=== PATIENT | male | born 1960 ===

== ENCOUNTER 2018-03-08 04:49 | Emergency (ER) | payer OTHER ==
--- NOTE | 2018-03-08 04:56 | Emergency Department Record ---
History of Present Illness - General Chief Complaint: Chest Pain Stated Complaint: CHEST PAIN Source: Patient Mode of Arrival: Ambulatory Limitations: No limitations - History of Present Illness Initial Comments: 57 yo male presents to ED for evaluation of chest pain symptoms to the mid- chest described as "grabbing" to the mid chest. Patient reports that his symptoms began approximately 6 hours ago, denies previous history of similar symptoms. Patient denies fevers, chills, cough, or difficulty in breathing. patient denies pain with deep inspiration. patient does report a history of HTN and smoking. MD Complaint: Chest pain Onset/Timin -: Hour(s) Pain Location: Substernal Pain Radiation: None Severity: Moderate Quality: Tightness Consistency: Constant Improves With: Nothing Worsens With: Nothing - Related Data Home Medications Medication Instructions Recorded Confirmed Last Taken Bp Med 1 ml PO BID 03/08/18 03/08/18 Unknown Allergies Allergy/AdvReac Type Severity Reaction Status Date / Time No Known Drug Allergies Allergy Verified 03/08/18 04:52 Review of Systems Constitutional: Denies: Chills, Fever, Malaise, Night sweats Eyes: Denies: Eye discharge, Eye pain ENT: Denies: Congestion, Ear pain, Epistaxis Respiratory: Denies: Cough, Dyspnea Cardiovascular: Reports: Chest pain. Denies: Dyspnea on exertion Endocrine: Denies: Fatigue, Heat or cold intolerance Gastrointestinal: Denies: Abdominal pain, Nausea, Vomiting Genitourinary: Denies: Incontinence, Retention Musculoskeletal: Denies: Arthralgia, Back pain, Gout, Joint swelling Skin: Denies: Bruising, Change in color Neurological: Denies: Abnormal gait, Confusion, Headache, Seizure Psychiatric: Denies: Anxiety Hematological/Lymphatic: Denies: Anemia, Blood Clots Physical Exam - General General Appearance: Alert, Oriented x3, Cooperative, Moderate distress Limitations: No limitations - Head Head exam: Atraumatic, Normocephalic, Normal inspection Head exam detail: negative: Abrasion, Contusion, London's sign, General tenderness, Hematoma, Laceration - Eye Eye exam: Normal appearance. negative: Conjunctival injection, Periorbital swelling, Periorbital tenderness, Scleral icterus - ENT Ear exam: negative: Auricular hematoma, Auricular trauma Nasal Exam: negative: Active bleeding, Discharge, Dried blood, Foreign body Mouth exam: negative: Drooling, Laceration, Muffled voice, Tongue elevation - Neck Neck exam: Normal inspection. negative: Meningismus, Tenderness - Respiratory Respiratory exam: Normal lung sounds bilaterally, Chest wall tenderness (MIld TTP to the left chest wall on examination.). negative: Rales, Respiratory distress, Rhonchi, Stridor - Cardiovascular Cardiovascular Exam: Regular rate, Normal rhythm, Normal heart sounds - GI/Abdominal GI/Abdominal exam: Soft. negative: Rebound, Rigid, Tenderness - Rectal Rectal exam: Deferred - exam: Deferred - Extremities Extremities exam: Normal inspection. negative: Calf tenderness, Pedal edema, Tenderness - Back Back exam: Denies: CVA tenderness (R), CVA tenderness (L) - Neurological Neurological exam: Alert, Normal gait, Oriented X3 - Psychiatric Psychiatric exam: Normal affect, Normal mood - Skin Skin exam: Normal color. negative: Abrasion Type of lesion: negative: abrasion Course - Reevaluation(s) Reevaluation #1: 03/08/18 05:11 EKG: NSR 51 Norm al axis, normal intervals Borderline elevated II, III, no significant reciprocal changes. Dr. Zamudio paged Returned call, reports that he is not on-call. 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 Dr. Everett paged for consultation. Reevaluation #2: 03/08/18 05:16 Dr. Everett reports that Dr. Maguire is on-call for interventional. Case was discussed with Dr. Maguire, EKG sent via phone for evaluation. Patient was reassessed, reports improvement in his pain symptoms following ASA and "sitting upright". Reevaluation #3: 03/08/18 05:19 Case was discussed with Dr. 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 EMS contacted for transfer. Heparin 5000 Units IV ordered. Awaiting Radiography. Reevaluation #4: 03/08/18 05:27 Pain improved to 0-1/10 after Nitro x 1. Portable CXR reviewed: Appears negative with normal appearing mediastinum. Reevaluation #5: 03/08/18 05:32 EMS is present for transfer. Medical Decision Making - Lab Data Result diagrams: 03/08/18 04:55 03/08/18 04:55 Critical Care Time Critical Care Time: Yes Total Critical Care Time: 45 Critical Care Time: Diagnosis and management of STEMI, consultation with cardiology, nitro/heparin administration, repeat EKG interpretation, numerous patient reassessments. Disposition Disposition: Transfer Clinical Impression: STEMI (ST elevation myocardial infarction) Qualifiers: Involved coronary artery: right coronary artery Qualified Code(s): I21.11 - ST elevation (STEMI) myocardial infarction involving right coronary artery Disposition: Acute Care Hospital Transfer Transfer To: [facility] Reason For Transfer: STEMI Accepting Physician: Erika Time Discussed w/Accepting Physician: 05:21 Condition: (2) Stable Forms: Patient Portal Access Time of Disposition: 05:21 Quality - Quality Measures Quality Measures: N/A - Blood Pressure Screening Does Patient Have Any of the Following: Active Dx of HTN Blood Pressure Classification: Hypertensive Reading Systolic Measurement: 169 Diastolic Measurement: 104 Screening for High Blood Pressure: Patient Exclusion, Hx of HTN [[id number]]
[2018-03-08] MEDS: ASPIRIN 81 MG CHEWABLE TABLET PO ONE (04:59)
[2018-03-08 05:01] LABS: BASO % 0.5 % (0-6); EOS % 1.2 % (0-6); GRAN % 73.9 % (47-80); HEMATOCRIT 47.6 % (42.0-52.0); HEMOGLOBIN 15.7 gm/dl (14.0-18.0); LYMPH % 17.2 % (16-45); MEAN CELL VOLUME 91.5 fl (81-97); MEAN CORPUSCULAR HEMOGLOBIN 30.2 pg (27-33); MEAN PLATELET VOLUME 8.9 fl (7.4-10.4); MONO % 7.2 % (0-9); PLATELET COUNT 531 K/uL (130-400); RED CELL DISTRIBUTION WIDTH 13.7 % (11.5-14.5)
[2018-03-08 05:10] LABS: BLOOD UREA NITROGEN 12 mg/dL (6-20); CREATININE 0.9 mg/dL (0.7-1.2); EST GLOMERULAR FILTRATION RATE > 60 mL/min
[2018-03-08 05:11] LABS: TOTAL PROTEIN 7.3 g/dL (6.6-8.7)
[2018-03-08 05:13] LABS: GLUCOSE,RANDOM 155 mg/dL (74-109)
[2018-03-08 05:15] LABS: ALB/GLOB RATIO 1.4 (1.1-1.8); ALBUMIN 4.2 g/dL (4.0-5.0); ALT/SGPT 11 U/L (<41); AST/SGOT 15 U/L (10.0-50.0)
[2018-03-08 05:16] LABS: ALKALINE PHOSPHATASE 73 U/L (40-129)
[2018-03-08] MEDS: 0.9 % SODIUM CHLORIDE 1000ML 1,000 ML IV SCH (05:21)
[2018-03-08] MEDS: NITROGLYCERIN 0.4MG SL TABLET #25 BTL SL PRN (05:21)
[2018-03-08] MEDS: HEPARIN SODIUM 1000 UNIT/1 ML 10ML VIAL IVP ONE (05:22)
[2018-03-08] MEDS: NITROGLYCERIN 0.4MG SL TABLET #25 BTL SL ONE (05:23)
--- NOTE | 2018-03-09 13:31 | RADIOLOGY REPORT ---
EXAM: CHEST, SINGLE VIEW HISTORY: CHEST PAIN. TECHNIQUE: A single portable semi-upright AP view of the chest was obtained. Comparison: None. FINDINGS: The cardiac silhouette size projects near the upper normal limits. The thoracic aorta is mildly tortuous. The pulmonary vasculature is not appreciably dilated. No focal consolidation, pleural effusion, or pneumothorax appreciated. IMPRESSION: NO ACUTE PULMONARY FINDINGS. JOB NUMBER: [id number] MTDD
== END 2018-03-08 05:40 | disposition short-term general hospital (02) ==
LOC: ER 04:49
DX: I21.11 ST elevation (STEMI) myocardial infarction involving right coronary artery (principal); I10 Essential (primary) hypertension; F17.210 Nicotine dependence, cigarettes, uncomplicated
CPT/HCPCS: 71045; 80053; 84484; 85025; 93005; 93010; 96374; 99285; J7030